=== PATIENT | female | born 1975 | race Caucasian/White ===

== ENCOUNTER 2019-02-28 05:36 | Day surgery (SDC) | payer OTHER ==
[~2019-02-28] VITALS: Ht 175.3 cm; Wt 123.8 kg
[~2019-02-28 05:36] MED LIST: ALPRAZOLAM ER1 MG PO; B12INJ IM; CARBAMAZEPINE400 M1 PO; ERGOCALCIF50000 UNIT PO; HYDROXYZINE PA100 MG PO; HYOSCYAMINE0.125 MG PO; LISINOPRIL10 MG PO; MOBIC15 MG PO; MULTI-VITAMIN1 EAC4 PO; NORVASC 2.5 MG2.5 M1 PO; NORVASC2.5 MG PO; PHENAZOPYRIDIN200 MG PO; PHENERGAN 25 MG25 M1 PO; PREVACID15 MG PO; PROPRANOLOL 20M20 M1 PO; PROZAC40 MG PO; RANITIDINE 150150 M1 PO; REQUIP0.5 MG PO; XANAX 0.5 MG0.5 MG PO; ZANAFLEX4 MG PO
[2019-02-28 06:44] LABS: HEMATOCRIT 37.7 % (37.0-47.0); HEMOGLOBIN 12.6 gm/dL (12.0-15.0); MCH 29.8 pg (26.0-34.0); MCHC 33.4 g/dL (28.0-37.0); MCV 89.3 fL (80.0-100.0); RBC 4.22 mil/uL (4.20-5.00); WBC 7.4 thou/uL (4.0-11.0)
[2019-02-28 07:00] VITALS: BP 120/67
--- NOTE | 2019-03-01 18:00 | EKG ---
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 : 1975 Requested By: Estevan Maxwell Order Number: [id number] MD: Jamal Enriquez Measurements Intervals [place] Rate: 72 P: 23 NC: 170 QRS: 90 QRSD: 111 T: 32 QT: 442 QTc: 484 Interpretive Statements Sinus rhythm Left posterior fascicular block Abnormal R-wave progression, late transition Compared to ECG 01/08/2014 06:28:24 No significant change was found Electronically Signed On 03-01-2019 17:59:55 CDT by Jamal Enriquez [email or web address] <ELECTRONICALLY SIGNED> By: Jamal Enriquez MD, [facility] 03/01/19 1759 [id number] Jamal Enriquez MD, [facility] /EPI
== END 2019-02-28 09:10 | disposition home or self-care (01) ==
LOC: OR 05:36 → TBA 05:37 → OR 09:10
PROVIDERS: Preventive Medicine Occupational Medicine
DX: Z46.2 Encounter for fitting and adjustment of other devices related to nervous system and special senses (principal); M47.896 Other spondylosis, lumbar region; G89.4 Chronic pain syndrome; G43.909 Migraine, unspecified, not intractable, without status migrainosus; F32.9 Major depressive disorder, single episode, unspecified; F41.9 Anxiety disorder, unspecified; D64.9 Anemia, unspecified; K21.9 Gastro-esophageal reflux disease without esophagitis; M54.5 Low back pain; Z98.890 Other specified postprocedural states; Z98.51 Tubal ligation status; Z79.899 Other long term (current) drug therapy; Z87.442 Personal history of urinary calculi
CPT/HCPCS: 50010; 50101; 50386; 50417; 56524; 56526; 57006; 57197; 57199; 57200; 57201; 62110; 62850; 70005

== ENCOUNTER 2019-06-18 05:37 | Day surgery (SDC) | payer OTHER ==
[~2019-06-18] VITALS: Ht 175.3 cm; Wt 124.3 kg
[~2019-06-18 05:37] MED LIST changes: +OXYCODONE HCL10 MG PO
[2019-06-18 07:30] VITALS: BP 114/64
== END 2019-06-18 10:25 | disposition home or self-care (01) ==
LOC: OR 05:37 → TBA 05:56 → PRE 06:27 → OR 08:24 → EDSTATUS 09:41 → PRE 09:45 → OR 10:25 → PRE 10:28 → EDSTATUS 12:14 → OR 12:16
DX: Z45.1 Encounter for adjustment and management of infusion pump (principal); G89.4 Chronic pain syndrome; I10 Essential (primary) hypertension; D64.9 Anemia, unspecified; G43.909 Migraine, unspecified, not intractable, without status migrainosus; F41.9 Anxiety disorder, unspecified; F31.9 Bipolar disorder, unspecified; K21.9 Gastro-esophageal reflux disease without esophagitis; Z87.442 Personal history of urinary calculi; Z98.84 Bariatric surgery status; Z87.891 Personal history of nicotine dependence; Z98.890 Other specified postprocedural states; Z98.51 Tubal ligation status; Z79.899 Other long term (current) drug therapy; Z88.8 Allergy status to other drugs, medicaments and biological substances
CPT/HCPCS: 50010; 50101; 50386; 50417; 56524; 56526; 56528; 57271; 57273; 62110; 62900; 70005